=== PATIENT | male | born 1995 ===

== ENCOUNTER 2020-09-07 18:51 | Outpatient (REF) | payer BC, SELFPAY ==
[2020-09-09 14:11] LABS: Chlamydia Result Negative (Negative); GC Result Negative (Negative)
== END 2020-09-07 18:52 | disposition home or self-care (01) ==
LOC: NCHCN 18:51
PROVIDERS: Visit Provider Physician Assistant Medical
DX: Z11.3 Encounter for screening for infections with a predominantly sexual mode of transmission (principal)
CPT/HCPCS: 87491; 87591

== ENCOUNTER 2020-10-04 19:10 | Outpatient (REF) | payer BC, SELFPAY ==
[2020-10-06 10:12] LABS: HIV-1/2 Ag & Ab Screen Negative (Negative)
[2020-10-06 10:21] LABS: Hepatitis C Ab w Rflx HCV PCR Negative (Negative)
[2020-10-06 11:17] LABS: Syphilis Serology (RPR) Negative (Negative)
== END 2020-10-04 19:11 | disposition home or self-care (01) ==
LOC: NCHCN 19:10
PROVIDERS: Visit Provider Internal Medicine
DX: Z11.3 Encounter for screening for infections with a predominantly sexual mode of transmission (principal); Z11.59 Encounter for screening for other viral diseases; Z11.4 Encounter for screening for human immunodeficiency virus [HIV]
CPT/HCPCS: 86803; 87389; 86592